=== PATIENT | female | born 1970 | race Caucasian/White ===

== ENCOUNTER 2016-08-31 17:08 | Emergency (ER) | payer OTHER ==
[2016-08-31 18:01] VITALS: BP 107/62
[2016-08-31] MEDS ORDERED: Ketorolac INJ* 60 MG/2 ML VIAL IM ONE (18:11)
--- NOTE | 2016-08-31 18:18 | UC ---
Back Pain HPI - HPI Summary HPI Summary: patient tripped over her cat and frannie her back, feels like her back is out of whack, radiating pain down the right leg, hard to bear weight on it. happened a few hours ago. - History of Current Complaint Chief Complaint: UCBackPain Stated Complaint: BACK PAIN Time Seen by Provider: 08/31/16 18:04 Hx Obtained From: Patient Hx Last Menstrual Period: 08/08/16 ?: No Onset/Duration: Sudden Onset, Lasting Hours Timing: Lasting Hours Severity Initially: Moderate Severity Currently: Moderate Back Pain: Is Diffuse Character: Throbbing, Spasmodic Aggravating: Movement, Lifting, Bending Associated Signs And Symptoms: Positive: Weakness, Pain with Weight Bearing - Risk Factors AAA Risk Factors: Negative TAD Risk Factors: Negative Cauda Equina Risk Factors: Negative - Allergies/Home Medications Allergies/Adverse Reactions: Allergies Allergy/AdvReac Type Severity Reaction Status Date / Time Erythromycin Allergy Hives Verified 08/31/16 17:50 Sulfa Antibiotics Allergy Hives Verified 08/31/16 17:50 PMH/Surg Hx/FS Hx/Imm Hx Previously Healthy: Yes Respiratory History Of: Reports: Asthma GI/ History Of: Reports: Gastroesophageal Reflux Psychological History Of: Reports: Anxiety, Depression - Surgical History Surgical History: Yes Surgery Procedure, Year, and Place: c sECTION. REMOVAL OF IUD - Family History Known Family History: Negative: Cardiac Disease, Hypertension - Social History Alcohol Use: Occasionally Substance Use Type: Marijuana, Prescribed Substance Use Comment - Amount & Last Used: "marijuana couple times a week" Smoking Status (MU): Heavy Every Day Tobacco Smoker Type: Cigarettes Amount Used/How Often: 1 PPD Have You Smoked in the Last Year: Yes - Immunization History Most Recent Influenza Vaccination: 2016 Most Recent Tetanus Shot: UTD Most Recent Pneumonia Vaccination: N/A Review of Systems Constitutional: Negative Skin: Negative Eyes: Negative ENT: Negative Respiratory: Negative Cardiovascular: Negative Gastrointestinal: Negative Genitourinary: Negative Motor: Negative Musculoskeletal: Arthralgia, Decreased ROM - back movment, hip movement due to pain, Myalgia Neurological: Negative Psychological: Negative All Other Systems Reviewed And Are Negative: Yes Physical Exam Triage Information Reviewed: Yes Appearance: Well-Appearing, Well-Nourished, Pain Distress Vital Signs: Initial Vital Signs Temp 98.2 F 08/31/16 17:52 Pulse 69 08/31/16 17:52 Resp 18 08/31/16 17:52 BP 107/62 08/31/16 17:52 Pulse Ox 95 08/31/16 17:52 Vital Signs Reviewed: Yes Eye Exam: Normal Eyes: Positive: Conjunctiva Clear ENT: Positive: Hearing grossly normal, Pharynx normal, TMs normal Dental Exam: Normal Neck exam: Normal Neck: Positive: Supple, Nontender, No Lymphadenopathy Respiratory Exam: Normal Respiratory: Positive: Chest non-tender, Lungs clear, Normal breath sounds Cardiovascular Exam: Normal Cardiovascular: Positive: RRR, No Murmur, Pulses Normal Abdominal Exam: Normal Abdomen Description: Positive: Nontender, No Organomegaly, Soft Bowel Sounds: Positive: Present Musculoskeletal: Positive: No Edema, Strength Limited @ - in right leg, ROM Limited @ - in back flx and ext Neurological Exam: Normal Neurological: Positive: Alert, Muscle Tone Normal Psychological Exam: Normal Skin Exam: Normal Back Pain Course/Dx - Course Course Of Treatment: hx obtained, exam performed, meds reviewed, patiant is followed by the pain managment clinic for epidural injections for pain managment. she did take 15 mg of Citra about 2 hours ago. no acute changes on xray, DJD noted, - Differential Dx/Diagnosis Differential Diagnosis/HQI/PQRI: Fracture, Herniated Disc, Strain, Sprain Provider Diagnoses: muscle spasm of low back Discharge - Discharge Plan Condition: Stable Disposition: HOME Patient Education Materials: Muscle Spasm (ED) Additional Instructions: your xray was negative for any acute injury Use your flexeril and Citra as prescribed. Heat and ice as needed, mild stretching and follow up with your pain doctor if symtpoms worsen.
--- NOTE | 2016-08-31 19:13 | RAD ---
INDICATION: Trauma, pain radiating down the right leg. COMPARISON: There are no prior studies available for comparison. TECHNIQUE: 5 views of the lumbar spine were obtained including lateral, oblique, AP and a coned-down lateral view of the lumbar sacral junction. FINDINGS: There is straightening of the lumbar spine with decrease in the normal lumbar lordosis. The vertebra are otherwise in normal alignment. No fracture is seen. There is moderate to severe disc space narrowing and endplate hypertrophic changes at the L2-L3, L3-L4 and L4-L5 levels. IMPRESSION: MODERATE TO SEVERE DEGENERATIVE DISC DISEASE.
== END 2016-08-31 19:28 | disposition home or self-care (01) ==
LOC: UCCORT 17:08
DX: M62.830 Muscle spasm of back (principal); J45.909 Unspecified asthma, uncomplicated; K21.9 Gastro-esophageal reflux disease without esophagitis; F41.8 Other specified anxiety disorders; Z88.1 Allergy status to other antibiotic agents; Z88.2 Allergy status to sulfonamides; F12.90 Cannabis use, unspecified, uncomplicated; F17.210 Nicotine dependence, cigarettes, uncomplicated
CPT/HCPCS: 72110; 96372; 99211; G0463; J1885